=== PATIENT | male | born 1980 | race Two or more races ===

== ENCOUNTER 2024-02-09 03:37 | Emergency (ER) | payer OTHER ==
[~2024-02-09] VITALS: Ht 172.7 cm; Wt 81.8 kg
[2024-02-09 04:02] VITALS: TEMP 97.9
[2024-02-09] MEDS: DiphenhydrAMINE HCL 50 MG/ML VIAL IVP ONE (04:26)
[2024-02-09 04:27] LABS: EOSINOPHILS % (AUTO) 0.1 % (1.0-6.0); HEMATOCRIT 45.4 % (41-53); LYMPHOCYTES # (AUTO) 0.9 K/uL (1.0-4.8); LYMPHOCYTES % (AUTO) 4.5 % (22.0-44.0); MEAN CORPUSCULAR VOLUME 88 fL (80-100); MONOCYTES # (AUTO) 0.5 K/uL (0.1-1.0); RED BLOOD CELL COUNT(AUTO) 5.17 MIL/uL (4.50-5.90)
[2024-02-09 04:57] LABS: BASOPHILS % (AUTO) 0.1 % (0.0-2.0); MONOCYTES % (AUTO) 2.2 % (2.0-9.0); NEUTROPHILS # (AUTO) 19.1 K/uL (1.8-7.7); NEUTROPHILS % (AUTO) 93.1 % (40.0-70.0); PLATELET COUNT (AUTO) 246 K/uL (150-450); RED CELL DISTRIBUTION WIDTH 13.7 % (11.5-14.5); WHITE BLOOD COUNT (AUTO) 20.5 K/uL (4.5-11.0)
[2024-02-09 05:02] LABS: ANION GAP 15 mmol/L (8-16); CALCIUM, TOTAL 8.8 mg/dL (8.8-10.5); CARBON DIOXIDE 23 mmol/L (22-29); CHLORIDE 104 mmol/L (98-107); CREATININE 1.69 mg/dL (0.60-1.30); GLOMERULAR FILTR. RATE CALC 45 mL/min (>60); GLUCOSE,RANDOM 240 mg/dL (70-110); POTASSIUM 3.8 mmol/L (3.5-5.1); SODIUM SERUM 142 mmol/L (136-145); UREA NITROGEN, BLOOD 14 mg/dL (7-18)
[2024-02-09 05:08] LABS: PH,URINE DRUG SCREEN 5.5 (5.0-8.0)
[2024-02-09 05:09] LABS: ALANINE AMINOTRANSFERASE 118 U/L (12-78); ALBUMIN 3.7 g/dL (3.4-5.0); ALKALINE PHOSPHATASE 86 U/L (46-116); ASPARTATE AMINOTRANSFERASE 155 U/L (15-37); BILIRUBIN,TOTAL 0.3 mg/dL (0.1-1.0)
[2024-02-09 05:12] LABS: ALCOHOL, BLOOD (SERUM) < 3 mg/dL (0-10)
[2024-02-09 05:24] LABS: ALCOHOL, URINE DRUG SCREEN NEGATIVE (NEGATIVE); AMPHET/METH SCREEN,URINE POSITIVE (NEGATIVE); BARBITURATE SCREEN, URINE NEGATIVE (NEGATIVE); BENZODIAZEPINES SCREEN,URINE NEGATIVE (NEGATIVE); CANNABINOID SCREEN,URINE NEGATIVE (NEGATIVE); COCAINE SCREEN,URINE NEGATIVE (NEGATIVE); METHADONE SCREEN, URINE NEGATIVE (NEGATIVE); OPIATE SCREEN,URINE NEGATIVE (NEGATIVE); PHENCYCLIDINE SCREEN,URINE NEGATIVE (NEGATIVE)
[2024-02-09] MEDS: LACTULOSE 20 GM/30 ML SOLUTION UDCUP PO ONE (05:39)
[2024-02-09] MEDS: NALOXONE HCL 1 MG/ML 2 ML SYRINGE IVP ONE (07:35)
[2024-02-09 13:20] VITALS: BP 109/75; PULSE 86; RESP 16; O2SAT 95
== END 2024-02-09 15:21 | disposition home or self-care (01) ==
LOC: EMS 03:37
DX: T40.2X1A Poisoning by other opioids, accidental (unintentional), initial encounter (principal); T40.411A Poisoning by fentanyl or fentanyl analogs, accidental (unintentional), initial encounter; R07.9 Chest pain, unspecified; Y92.89 Other specified places as the place of occurrence of the external cause
CPT/HCPCS: 99291; 96374; 96375; 80048; 80076; 85025; 36415; 71045; 82962; 93005; 80307; G0480; J1200; J2310